=== PATIENT | male | born 1960 | race Hispanic/Latino ===

== ENCOUNTER 2020-05-20 17:39 | Emergency (ER) | payer SELFPAY ==
[~2020-05-20] VITALS: Ht 167.6 cm; Wt 60.0 kg
[~2020-05-20 17:39] MED LIST: NEXIUM20 M1 PO; PROTONIX40 MG PO; REGLAN10 MG PO; ZANTAC150 M1 PO
[2020-05-20 18:01] LABS: HEMATOCRIT 36.8 % (39.0-50.0); HEMOGLOBIN 10.9 g/dl (14.0-18.0); IMMATURE GRANULOCYTES 0.7 % (0.0-5.0); MEAN CELL VOLUME 78.6 fL CALC (80.0-100.0); MEAN CORPUSCULAR HGB 23.3 pG CALC (26.0-32.0); MEAN CORPUSCULAR HGB CONC 29.6 g/dL CAL (32.0-36.0); NEUT# 18.68 thou/uL (1.82-7.42); RED BLOOD COUNT 4.68 mill/uL (4.70-6.10); RED CELL DISTRI WIDTH 15.6 % (11.5-15.5)
[2020-05-20 18:16] LABS: ALBUMIN 5.2 g/dL (3.2-5.0); ALKALINE PHOSPHATASE 96 u/l (38-126); ANION GAP 28 (6-22 (CALC)); BILIRUBIN, TOTAL 0.5 mg/dL (0.0-1.4); BUN 15 mg/dL (9-20); BUN/CREATININE RATIO 10 (12-20 (CALC)); CARBON DIOXIDE 23 mmol/l (22-30); CHLORIDE 88 mmol/l (95-108); CREATININE 1.5 mg/dL (0.7-1.3); GFR 48 ML/MIN (>=60 (CALC)); GFR FOR AFR.AMER. 58 ML/MIN (>=60 (CALC)); POTASSIUM 2.8 mmol/l (3.5-5.1); SGOT/AST 35 u/l (17-59); SODIUM 136 mmol/l (137-146); TOTAL PROTEIN 8.8 g/dL (6.3-8.2)
[2020-05-20 18:55] VITALS: BP 140/99
[2020-05-20 19:25] LABS: URINE BILIRUBIN - DIPSTICK NEGATIVE (NEGATIVE); URINE BLOOD DIPSTICK NEGATIVE (NEGATIVE); URINE COLOR YELLOW; URINE GLUCOSE - DIPSTICK NEGATIVE (NEGATIVE); URINE KETONE NEGATIVE (NEGATIVE); URINE LEUK ESTERASE NEGATIVE (NEGATIVE); URINE NITRITE - DIPSTICK NEGATIVE (Negative); URINE PH 8.5 (4.5-8.0); URINE PROTEIN - DIPSTICK 100 mg/dL (NEG-TRACE); URINE UROBILINOGEN - DIPSTICK 0.2 E.U./dL (0.2)
[2020-05-20 19:30] LABS: URINE RBC 0-2 RBC/hpf (0-5); URINE WBC 0-2 WBC/hpf (0-5)
[2020-05-20 20:10] VITALS: BP 115/77
[2020-05-20 20:15] LABS: HEMATOCRIT 38.4 % (39.0-50.0); HEMOGLOBIN 11.6 g/dl (14.0-18.0)
[2020-05-20 20:58] VITALS: BP 128/92
[2020-05-20] MEDS ORDERED: [UNRECOGNIZED DRUG - REMARK] (21:13)
--- NOTE | 2020-05-22 08:48 | NUR ---
Faxed preliminary blood culture results showing gram positive cocci to [facility] at [phone]
--- NOTE | 2020-05-23 08:32 | NUR ---
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
== END 2020-05-20 21:25 | disposition short-term general hospital (02) | DRG 872 ==
LOC: ED 17:39 → EDBD 17:39 → ED 17:56
PROVIDERS: Family Medicine
PROC: 0W9930Z Drainage of Right Pleural Cavity with Drainage Device, Percutaneous Approach (ICD-10-PCS; principal; 2020-05-20)
PROC: 06HY33Z Insertion of Infusion Device into Lower Vein, Percutaneous Approach (ICD-10-PCS; 2020-05-20)
PROC: 0BH17EZ Insertion of Endotracheal Airway into Trachea, Via Natural or Artificial Opening (ICD-10-PCS; 2020-05-20)
PROC: 0T9B70Z Drainage of Bladder with Drainage Device, Via Natural or Artificial Opening (ICD-10-PCS; 2020-05-20)
PROC: 30233N1 Transfusion of Nonautologous Red Blood Cells into Peripheral Vein, Percutaneous Approach (ICD-10-PCS; 2020-05-20)
DX: A41.9 Sepsis, unspecified organism (principal); J93.9 Pneumothorax, unspecified; K92.2 Gastrointestinal hemorrhage, unspecified; J98.2 Interstitial emphysema; R06.03 Acute respiratory distress; I95.9 Hypotension, unspecified; E87.6 Hypokalemia; Z20.828 Contact with and (suspected) exposure to other viral communicable diseases
CPT/HCPCS: J2354; J3475; P9016; Q9967; S0164